=== PATIENT | female | born 1960 | race Caucasian/White ===

== ENCOUNTER 2017-09-06 11:16 | Emergency (ER) | payer OTHER ==
[~2017-09-06] VITALS: Ht 162.6 cm; Wt 77.6 kg
[~2017-09-06 11:16] MED LIST: PROVENTIL HFA6.7 GM IH; TAMIFLU75 MG PO; ZITHROMAX Z-PA250 MG PO
[2017-09-06] MEDS ORDERED: COSOPT EYE DROP10 ML LEFT EYE (14:31)
[2017-09-06] MEDS ORDERED: PERCOCET 5/31 TABLET PO (14:31)
[2017-09-06] MEDS ORDERED: ALPHAGAN P100 DROP/1 BOTH EYES (14:31)
[2017-09-06 15:03] VITALS: BP 178/78
== END 2017-09-06 15:55 | disposition home or self-care (01) ==
LOC: EME 11:16
DX: H40.20X0 Unspecified primary angle-closure glaucoma, stage unspecified (principal); H54.62 Unqualified visual loss, left eye, normal vision right eye; H26.9 Unspecified cataract; I10 Essential (primary) hypertension; F17.200 Nicotine dependence, unspecified, uncomplicated
CPT/HCPCS: 99281; 99285; J1120; J2270